=== PATIENT | male | born 1940 | race Caucasian/White ===

== ENCOUNTER 2019-03-26 12:25 | Day surgery (SDC) | payer OTHER ==
[~2019-03-26] VITALS: Ht 175.3 cm; Wt 84.2 kg
[~2019-03-26 12:25] MED LIST: ALEVE PM CAPLE1 EACH PO; ATEN100; Amlodipine Besyl5 MG PO; BENZ100A PO; Belladonna-Opi1 EACH RC; Buspirone HCl7.5 MG PO; CENTRUM SILVER1 EAC1 PO; CIPRO500 MG PO; DUTA.5 PO; Fish Oil 10001000 MG PO; LATA.005SO LEFTEYE; LOSA25 PO; Lisinopril2.5 MG; METF500C PO; METO50ER PO; PANT40 PO; Percocet 5-3251 EACH PO; SILD25T; TAMS.4ER PO; TRIAOIA; Toviaz4 MG PO
--- NOTE | 2019-03-26 13:04 | NUR ---
03/26/19 1304 Jovita Azevedo 1ST IV ATTEMPT IN RW UNSUCCESSFUL, ATTEMPTED BY ROSEANN BOBBY 2ND IV ATTEMPT IN RFA SUCCESSFUL, STARTED BY KIKA GILMAN.
== END 2019-03-26 15:25 | disposition home or self-care (01) ==
LOC: ORSCSDS 12:25
PROVIDERS: Internal Medicine Gastroenterology
PROC: 0DBK8ZX Excision of Ascending Colon, Via Natural or Artificial Opening Endoscopic, Diagnostic (ICD-10-PCS; principal; 2019-03-26 13:45)
PROC: 0DBM8ZX Excision of Descending Colon, Via Natural or Artificial Opening Endoscopic, Diagnostic (ICD-10-PCS; principal; 2019-03-26 13:45)
PROC: 0DBP8ZX Excision of Rectum, Via Natural or Artificial Opening Endoscopic, Diagnostic (ICD-10-PCS; principal; 2019-03-26 13:45)
DX: Z12.11 Encounter for screening for malignant neoplasm of colon (principal); K63.5 Polyp of colon; K62.1 Rectal polyp; K51.40 Inflammatory polyps of colon without complications; K57.30 Diverticulosis of large intestine without perforation or abscess without bleeding; Z86.010 Personal history of colon polyps; I10 Essential (primary) hypertension; E11.9 Type 2 diabetes mellitus without complications; Z79.84 Long term (current) use of oral hypoglycemic drugs; Z79.899 Other long term (current) drug therapy
CPT/HCPCS: 82947; 88305; J2704; J7120

== ENCOUNTER 2020-01-02 07:57 | Day surgery (SDC) | payer OTHER ==
[~2020-01-02] VITALS: Ht 172.7 cm; Wt 68.6 kg
== END 2020-01-02 09:50 | disposition home or self-care (01) ==
LOC: ORSCSDS 07:57
PROVIDERS: Internal Medicine Gastroenterology
PROC: 0DB58ZX Excision of Esophagus, Via Natural or Artificial Opening Endoscopic, Diagnostic (ICD-10-PCS; principal; 2020-01-02 09:00)
DX: R63.4 Abnormal weight loss (principal); C15.9 Malignant neoplasm of esophagus, unspecified; R11.0 Nausea; K44.9 Diaphragmatic hernia without obstruction or gangrene; F41.9 Anxiety disorder, unspecified; Z79.899 Other long term (current) drug therapy
CPT/HCPCS: 88305; 88360; J0461; J2405; J2704; J7120

== ENCOUNTER 2020-01-21 08:57 | Day surgery (SDC) | payer OTHER ==
[~2020-01-21] VITALS: Ht 175.3 cm; Wt 62.7 kg
[~2020-01-21 08:57] MED LIST changes: +CENTRUM SILVER1 EAC2 PO; +Hydroxyzine Pam25 MG PO; +LATANOPROST2.5 M1 LEFTEYE; +OMEPRAZOLE20 MG PO; +ONDA4 PO; +VITAMIN D PO
--- NOTE | 2020-01-21 12:10 | NUR ---
ASSUMED CARE OF PT. PT DENIES PAIN. TOLERATING JUICE. DRESSING D/I.
--- NOTE | 2020-01-21 12:29 | NUR ---
WRITTEN AND VERBAL D/C INSTRUCTIONS GIVEN TO PT AND WITH STATED UNDERSTANDING.
== END 2020-01-21 22:37 | disposition home or self-care (01) ==
LOC: ORSCMMR 08:57 → ORD 10:00 → ORSCMMR 22:37
PROVIDERS: Surgery
PROC: 05HM33Z Insertion of Infusion Device into Right Internal Jugular Vein, Percutaneous Approach (ICD-10-PCS; principal; 2020-01-21 10:00)
PROC: B5131ZA Fluoroscopy of Right Jugular Veins using Low Osmolar Contrast, Guidance (ICD-10-PCS; principal; 2020-01-21 10:00)
DX: C15.5 Malignant neoplasm of lower third of esophagus (principal); I10 Essential (primary) hypertension; E11.9 Type 2 diabetes mellitus without complications; E78.5 Hyperlipidemia, unspecified; K21.9 Gastro-esophageal reflux disease without esophagitis; Z79.899 Other long term (current) drug therapy
CPT/HCPCS: 77001; 82947; A9270-GY; C1788; J0690; J1100; J1642; J2405; J2704; J3010; J7120

== ENCOUNTER 2020-02-05 11:12 | Inpatient (IN) | payer OTHER ==
[~2020-02-05] VITALS: Ht 175.3 cm; Wt 42.9 kg
[~2020-02-05 11:12] MED LIST changes: -LATANOPROST2.5 M1 LEFTEYE; -OMEPRAZOLE20 MG PO; -ONDA4 PO
[2020-02-05] MEDS ORDERED: DEXA4 PO (12:41)
[2020-02-05] MEDS ORDERED: ONDA8 PO (12:43)
[2020-02-05] MEDS ORDERED: DUTA.5 PO (12:44)
[2020-02-05] MEDS ORDERED: Toviaz4 MG PO (12:44)
[2020-02-05] MEDS ORDERED: OMEPRAZOLE20 MG PO (12:47)
[2020-02-05] MEDS ORDERED: LATANOPROST2.5 M1 LEFTEYE (12:56)
[2020-02-05] MEDS ORDERED: TAMS.4ER PO (12:56)
[2020-02-05] MEDS ORDERED: ISOPTO CARPINE15 M2 LEFTEYE (12:59)
[2020-02-05] MEDS ORDERED: METO10 PO (13:01)
[2020-02-05 16:12] LABS: Source, Urine Clean Catch
[2020-02-05 16:18] LABS: Bilirubin, Urine Neg (Neg); Blood, Urine 1+ (Neg); Glucose Qualitative, Urine Neg (Neg); Ketones, Urine 1+ (Neg); Leukocyte Esterase, Urine Neg (Neg); Nitrite, Urine Neg (Neg); Protein, Urine 2+ (Neg); Specific Gravity, Urine 1.025 (1.003-1.022); Urobilinogen, Urine NORM (Normal)
[2020-02-05 16:26] LABS: Appearance, Urine Clear (Clear); Color, Urine Amber (P-Yellow)
[2020-02-05 16:27] LABS: White Blood Cells, Urine 0-2 /hpf (0-5)
[2020-02-05 16:28] LABS: Bacteria Mod /hpf
[2020-02-05 16:29] LABS: Squamous Epithelial Cells Rare /hpf (Few)
--- NOTE | 2020-02-05 19:24 | NUR ---
ADMIT NOTE RECEIVED REPORT FROM JACQUSE LEE; KIKA IN ED. PT TO ROOM AT 1615; 4 PERSON TRANSFER WITH SLIDER SHEET. PT ORIENTED TO ROOM AND CALL LIGHT; EDUCATED ON FALL RISK AND ASSISTANCE WITH AMBULATION IN ROOM. PT REPORTS FEELING "FINE NOW"; PREVIOUS PT HAD REPORTS COUGH, FEVER, NAUSEA AND ABD PAIN IN ED. PT A&Ox3; CALM AND COOPERATIVE WITH CARE. PT APPEARS FLAT AND WITHDRAWN; STATING HE IS JUST TIRED AND WANTS TO SLEEP. PT DENIES PAIN, CHEST PAIN/PRESSURE, SOB AND NAUSEA SINCE ADMISSION. PT HR PER TELE SINUS TACH 120'S UPON ADMISSION TRENDING DOWN. SPO2 >92% ON RA; BREATHING EVEN AND UNLABORED, TACHYPNIC. PT USING URINAL IN BED. ABLE TO CHANGE POSITION IN BED IND; ENCOURAGED PT TO REPOSITION. VSS. NO OTHER ACUTE CHANGES NOTED. REPORT GIVEN TO ONCOMING RN.
--- NOTE | 2020-02-05 22:00 | NUR ---
POSITIVE BLOOD CULTURES LAB CALLED WITH POSITIVE OUTPATIENT BLOOD CULTURES DRAWN PRIOR TO ADMISSION. CULTURES WERE POSITIVE FOR GRAM POSITIVE COCCI IN CHAINS. PROVIDER CALLED. [facility] CONSULT PLACED.
[2020-02-06 03:41] LABS: Hematocrit 27.8 % (37.0-53.0); Hemoglobin 9.2 g/dL (13.5-17.5); Mean Corpuscular HGB 32.9 pg (26.0-34.0); Mean Corpuscular HGB Conc 33.1 g/dL (31.5-36.5); Mean Corpuscular Volume 99 fL (80-100); Platelet Count 110 K/mm3 (150-400); RDW Coefficient Variation 14.3 % (11.7-14.2); RDW Standard Deviation 52.1 fL (35.1-46.3); White Blood Cell Count 1.34 K/mm3 (4.00-11.30)
[2020-02-06 04:01] LABS: Alanine Aminotransfer (ALT/SGP 32 U/L (12-78); Albumin, Blood 1.9 g/dL (3.4-5.0); Albumin/Globulin Ratio 0.7 (0.8-1.8); Alk Phos 162 U/L (50-136); Anion Gap 8 mmol/L (6-16); Aspartate Aminotrans (AST/SGOT 33 U/L (12-37); Bilirubin, Total 0.5 mg/dL (0.1-1.0); Blood Urea Nitrogen 23 mg/dL (8-24); Bun/Creatinine Ratio 29.2 (12.0-20.0); CO2, Blood 22 mmol/L (21-32); Calcium, Blood 7.1 mg/dL (8.5-10.1); Chloride, Blood 110 mmol/L (98-108); Creatinine, Blood 0.79 mg/dL (0.60-1.20); Globulin, Blood 2.6 g/dL (2.2-4.0); Glomerular Filtration Rate >60 (60-); Glucose, Blood 83 mg/dL (70-99); Potassium, Blood 4.2 mmol/L (3.5-5.5); Sodium, Blood 140 mmol/L (136-145); Total Protein, Blood 4.5 g/dL (6.4-8.2); Vancomycin, Random 9.6 ug/mL
[2020-02-06 05:54] LABS: BAND PERCENT MAN 29 % (0-8); BASOPHILS PERCENT MAN 0 % (0-2); EOSINOPHILS PERCENT MAN 0 % (0-6); LYMPHOCYTES PERCENT MAN 23 % (21-46); METAMYELOCYTE ABSOLUTE MAN 0.14 K/mm3 (0.00-0.00); METAMYELOCYTE PERCENT MAN 11 % (0-0); MONOCYTES ABSOLUTE MAN 0.25 K/mm3 (0.16-1.47); MONOCYTES PERCENT MAN 19 % (4-13); MYELOCYTE ABSOLUTE MAN 0.02 K/mm3 (0.00-0.00); MYELOCYTE PERCENT MAN 2 % (0-0); NEUTROPHILS ABSOLUTE MAN 0.61 K/mm3 (1.96-9.15); SEG NEUTROPHILS PERCENT MAN 17 % (41-73); TOTAL CELLS COUNTED 150
--- NOTE | 2020-02-06 06:22 | NUR ---
SHIFT SUMMARY PT SLEEPING IN ROOM COMFORTABLY AT THIS TIME. NO ACUTE CHANGES IN STATUS T/O NIGHT. PT SLEPT WELL T/O NIGHT. DENIED ANY CP OR SOB. PT HAD LOWER BP T/O NIGHT. FLUIDS INFUSING IN PIV PER EMAR. LACTIC ACID CONTINUED TO TREND DOWNWARD DURING NIGHT. PT REMAINED AFEBRILE. DENIED OTHER NEEDS. RESP EVEN UNLABORED ON RA W/ SATS >92%. PT VERY FLAT AFFECT. USES URINAL IN BED WITH ASSIST. DENIED OTHER NEEDS. CALL LIGHT IN REACH.
--- NOTE | 2020-02-06 19:18 | NUR ---
SHIFT SUMMARY PT A&Ox3; CALM AND COOPERATIVE WITH CARE. PT RESTING IN BED DURING SHIFT. 1 PERSON ASSIST TO BSC. PT DENIES, PAIN, CHEST PAIN/PRESSURE, SOB, NAUSEA AND DIZZINESS. PT RECIVING IV ANTIBITOICIS AND IV FLUIDS. SPO2 >92% ON RA. VSS. NO OTHER ACUTE CHANGES NOTED DURING SHIFT. REPORT GIVEN TO ONCOMING RN.
[2020-02-07 04:07] LABS: Alanine Aminotransfer (ALT/SGP 41 U/L (12-78); Albumin, Blood 1.8 g/dL (3.4-5.0); Albumin/Globulin Ratio 0.7 (0.8-1.8); Alk Phos 154 U/L (50-136); Anion Gap 11 mmol/L (6-16); Aspartate Aminotrans (AST/SGOT 48 U/L (12-37); Bilirubin, Total 0.4 mg/dL (0.1-1.0); Blood Urea Nitrogen 27 mg/dL (8-24); Bun/Creatinine Ratio 40.4 (12.0-20.0); CO2, Blood 19 mmol/L (21-32); Calcium, Blood 7.1 mg/dL (8.5-10.1); Chloride, Blood 110 mmol/L (98-108); Creatinine, Blood 0.67 mg/dL (0.60-1.20); Globulin, Blood 2.5 g/dL (2.2-4.0); Glomerular Filtration Rate >60 (60-); Glucose, Blood 129 mg/dL (70-99); Potassium, Blood 3.6 mmol/L (3.5-5.5); Sodium, Blood 140 mmol/L (136-145); Total Protein, Blood 4.3 g/dL (6.4-8.2); Vancomycin, Random 6.9 ug/mL
--- NOTE | 2020-02-07 06:22 | NUR ---
SHIFT SUMMARY PT SLEEPING IN ROOM COMFORTABLY AT THIS TIME. NO ACUTE CHANGES IN STATUS T/O NIGHT. PT SLEPT WELL. DENIED ANY CP OR SOB. RESP EVEN UNLABORED ON RA W/ SATS >92%. BICARB WAS INFUSING IN PIV MOST OF THE NIGHT. CLIMIMIX STARTED NEXT IN PIV SEE EMAR. DENIED OTHER NEEDS. PT USING CALL LIGHT APPROPRIATELY FOR BSC USE AND URINAL. DENIED OTHER NEEDS. PT REFUSING BEDSIDE REPORT THIS AM. REPORTS WANTS TO SLEEP.
[2020-02-07 08:59] LABS: Hematocrit 28.5 % (37.0-53.0); Hemoglobin 9.2 g/dL (13.5-17.5); Mean Corpuscular HGB 32.7 pg (26.0-34.0); Mean Corpuscular HGB Conc 32.3 g/dL (31.5-36.5); Mean Corpuscular Volume 101 fL (80-100); Mean Platelet Volume 11.2 fL (9.1-12.4); NRBC ABSOLUTE 0.03 K/mm3 (0.00-0.02); NRBC Auto 0.4 /100 WBC (0.0-0.2); Platelet Count 199 K/mm3 (150-400); RDW Coefficient Variation 14.5 % (11.7-14.2); RDW Standard Deviation 54.3 fL (35.1-46.3); Red Blood Cell Count 2.81 M/mm3 (4.30-5.90); White Blood Cell Count 7.68 K/mm3 (4.00-11.30)
[2020-02-07 09:23] LABS: BAND PERCENT MAN 31 % (0-8); BASOPHILS PERCENT MAN 0 % (0-2); EOSINOPHILS PERCENT MAN 0 % (0-6); LYMPHOCYTES ABSOLUTE MAN 0.46 K/mm3 (0.84-5.20); LYMPHOCYTES PERCENT MAN 6 % (21-46); MONOCYTES ABSOLUTE MAN 0.69 K/mm3 (0.16-1.47); MONOCYTES PERCENT MAN 9 % (4-13); NEUTROPHILS ABSOLUTE MAN 6.52 K/mm3 (1.96-9.15); SEG NEUTROPHILS PERCENT MAN 54 % (41-73); TOTAL CELLS COUNTED 100
[2020-02-07 09:37] LABS: Magnesium, Blood 1.7 mg/dL (1.6-2.4); Phosphorus, Blood 1.4 mg/dL (2.5-4.9)
--- NOTE | 2020-02-07 16:28 | NUR ---
SHIFT NOTE PT HAS BEEN RESTING WELL IN BED T/O THE DAY. PT APPEARS LESS WITHDRAWN T/O THE SHIFT. VSS. PT WITH CLINIMIX AND POTASSIUM PHOSPHATE RUNNING PER ORDERS AT THIS TIME. PT HAS HAD A VERY POOR APPETITE T/O THE DAY, PICKS AT HIS TRAY DOES NOT EAT A GREAT DEAL, DIETARY IS AWARE OF THIS. PT HAS DENIED MANY NEEDS T/O THE DAY. PT HAS BEEN MADE MEDICAL STATUS W/O TELE.
[2020-02-08 05:29] LABS: Hematocrit 33.6 % (37.0-53.0); Hemoglobin 11.3 g/dL (13.5-17.5); Mean Corpuscular HGB Conc 33.6 g/dL (31.5-36.5); Mean Corpuscular Volume 98 fL (80-100); Mean Platelet Volume 10.2 fL (9.1-12.4); NRBC ABSOLUTE 0.07 K/mm3 (0.00-0.02); NRBC Auto 0.2 /100 WBC (0.0-0.2); Platelet Count 303 K/mm3 (150-400); RDW Coefficient Variation 14.7 % (11.7-14.2); RDW Standard Deviation 53.1 fL (35.1-46.3); Red Blood Cell Count 3.42 M/mm3 (4.30-5.90)
[2020-02-08 05:51] LABS: Alanine Aminotransfer (ALT/SGP 63 U/L (12-78); Albumin, Blood 2.1 g/dL (3.4-5.0); Albumin/Globulin Ratio 0.7 (0.8-1.8); Alk Phos 266 U/L (50-136); Anion Gap 11 mmol/L (6-16); Aspartate Aminotrans (AST/SGOT 54 U/L (12-37); Bilirubin, Total 0.6 mg/dL (0.1-1.0); Blood Urea Nitrogen 23 mg/dL (8-24); Bun/Creatinine Ratio 41.7 (12.0-20.0); CO2, Blood 19 mmol/L (21-32); Calcium, Blood 8.6 mg/dL (8.5-10.1); Chloride, Blood 108 mmol/L (98-108); Creatinine, Blood 0.55 mg/dL (0.60-1.20); Glomerular Filtration Rate >60 (60-); Glucose, Blood 135 mg/dL (70-99); Phosphorus, Blood 2.4 mg/dL (2.5-4.9); Potassium, Blood 4.1 mmol/L (3.5-5.5); Sodium, Blood 138 mmol/L (136-145); Total Protein, Blood 5.1 g/dL (6.4-8.2)
[2020-02-08 06:15] LABS: BAND PERCENT MAN 16 % (0-8); BASOPHILS PERCENT MAN 0 % (0-2); EOSINOPHILS PERCENT MAN 0 % (0-6); LYMPHOCYTES PERCENT MAN 6 % (21-46); MONOCYTES ABSOLUTE MAN 1.13 K/mm3 (0.16-1.47); MONOCYTES PERCENT MAN 4 % (4-13); MYELOCYTE ABSOLUTE MAN 0.85 K/mm3 (0.00-0.00); MYELOCYTE PERCENT MAN 3 % (0-0); NEUTROPHILS ABSOLUTE MAN 24.42 K/mm3 (1.96-9.15); PROMYELOCYTE ABSOLUTE MAN 0.28 K/mm3 (0.00-0.00); PROMYELOCYTE PERCENT MAN 1 % (0-0); SEG NEUTROPHILS PERCENT MAN 70 % (41-73); TOTAL CELLS COUNTED 100
--- NOTE | 2020-02-08 06:30 | NUR ---
SHIFT SUMMARY PT SLEEPING IN ROOM COMFORTABLY AT THIS TIME. NO ACUTE CHANGES IN STATUS T/O NIGHT PT SLEPT WELL. RESP EVEN UNLABORED ON RA W/ SATS >92> DENIED CP OR SOB. PT USED URINAL IN BED W/O ASSIST DURING NIGHT. SLEEP STUDY DONE. VISITS TO ROOM REDUCED TO ALLOW PT TO SLEEP. CALL LIGHT IN REACH. COVID TEST REMAINS PENDING.
--- NOTE | 2020-02-08 11:00 | NUR ---
DR FIOR CHILDRESS HERE TO SEE PT. NO NEW CHANGES AT THIS TIME. PLAN FOR DISCHARGE HOME TODAY. WILL CONTINUE TO MONITOR.
[2020-02-08] MEDS ORDERED: MELATONIN5 M1 PO (12:47)
[2020-02-08] MEDS ORDERED: LEVO750 PO (12:48)
--- NOTE | 2020-02-08 14:04 | NUR ---
DISCHARGE PT DISCHARGED TO HOME VIA WHEEL CHAIR WITH PT SPOUSE TO DRIVE PT HOME. ALL PT BELONGINGS TAKEN WITH PT.
--- NOTE | 2020-02-08 14:57 | NUR ---
LATE ENTRY: CONTACTED BY PRIMARY RN AND CHARGE DUKE ANAND. PT HAS NO PREFERENCE FOR HOME HEALTH. PT HAS ORDERS FOR HOME HEALTH FACE TO FACE AND PATIENT WOULD LIKE AN EVAL SET UP PRIOR TO GOING HOME. ATTEMPT TO CONTACT [facility] SYED UNSUCCESSFUL. CALL TO CARLOS JOSE. SHE WILL GET HOLD OF FAMILY AND SET UP A HOME HEALTH EVAL. FABIOLA LAWRENCE RN CARE MANAGER.
== END 2020-02-08 14:12 | disposition home or self-care (01) | DRG 872 ==
LOC: ER 11:12 → PCU 13:32
PROVIDERS: Emergency Medicine; Pharmacist; ADMIT Family Medicine
DX: A40.8 Other streptococcal sepsis (principal); C15.9 Malignant neoplasm of esophagus, unspecified; E44.0 Moderate protein-calorie malnutrition; E87.2 Acidosis; C78.7 Secondary malignant neoplasm of liver and intrahepatic bile duct; C78.1 Secondary malignant neoplasm of mediastinum; R65.20 Severe sepsis without septic shock; D70.9 Neutropenia, unspecified; E86.0 Dehydration; Z20.828 Contact with and (suspected) exposure to other viral communicable diseases; Z66 Do not resuscitate; L89.92 Pressure ulcer of unspecified site, stage 2; D70.1 Agranulocytosis secondary to cancer chemotherapy; R50.81 Fever presenting with conditions classified elsewhere
CPT/HCPCS: 36415; 51798; 71045; 80053; 80202; 81001; 83605; 83735; 84100; 85007; 85025; 85027; 87040; 87086; 87147; 87184; 93005; 93010; 93306; 94762; 96361; 96365; 96366; 96367; 96375; 99285-25; J0692; J0696; J1170; J1447; J1650; J1956; J2405; J3370; J3411; J7030; J7040; J7050; J7060; U0003

== ENCOUNTER 2020-04-10 15:52 | Emergency (ER) | payer OTHER ==
[~2020-04-10] VITALS: Ht 175.3 cm; Wt 49.9 kg
[~2020-04-10 15:52] MED LIST changes: +DEXA4 PO; +ISOPTO CARPINE15 M2 LEFTEYE; +LATANOPROST2.5 M1 LEFTEYE; +LEVO750 PO; +MELATONIN5 M1 PO; +METO10 PO; +OMEPRAZOLE20 MG PO; +ONDA8 PO
[2020-04-10 16:43] LABS: Hematocrit 29.5 % (37.0-53.0); Hemoglobin 9.5 g/dL (13.5-17.5); Mean Corpuscular HGB 34.7 pg (26.0-34.0); Mean Corpuscular HGB Conc 32.2 g/dL (31.5-36.5); Mean Corpuscular Volume 108 fL (80-100); Mean Platelet Volume 10.5 fL (9.1-12.4); NRBC ABSOLUTE 0.03 K/mm3 (0.00-0.02); NRBC Auto 0.6 /100 WBC (0.0-0.2); Platelet Count 154 K/mm3 (150-400); RDW Standard Deviation 72.9 fL (35.1-46.3); Red Blood Cell Count 2.74 M/mm3 (4.30-5.90); White Blood Cell Count 5.18 K/mm3 (4.00-11.30)
[2020-04-10 17:04] LABS: Alanine Aminotransfer (ALT/SGP 34 U/L (12-78); Albumin, Blood 3.5 g/dL (3.4-5.0); Albumin/Globulin Ratio 1.3 (0.8-1.8); Alk Phos 201 U/L (50-136); Anion Gap 7 mmol/L (6-16); Aspartate Aminotrans (AST/SGOT 25 U/L (12-37); BAND PERCENT MAN 3 % (0-8); BASOPHILS PERCENT MAN 0 % (0-2); Blood Urea Nitrogen 37 mg/dL (8-24); Bun/Creatinine Ratio 57.4 (12.0-20.0); CO2, Blood 26 mmol/L (21-32); Calcium, Blood 8.9 mg/dL (8.5-10.1); Chloride, Blood 113 mmol/L (98-108); Creatinine, Blood 0.65 mg/dL (0.60-1.20); EOSINOPHILS PERCENT MAN 0 % (0-6); Globulin, Blood 2.6 g/dL (2.2-4.0); Glomerular Filtration Rate >60 (60-); Glucose, Blood 158 mg/dL (70-99); LYMPHOCYTES ABSOLUTE MAN 0.41 K/mm3 (0.84-5.20); LYMPHOCYTES PERCENT MAN 8 % (21-46); MONOCYTES PERCENT MAN 2 % (4-13); NEUTROPHILS ABSOLUTE MAN 4.66 K/mm3 (1.96-9.15); Potassium, Blood 3.5 mmol/L (3.5-5.5); SEG NEUTROPHILS PERCENT MAN 87 % (41-73); Sodium, Blood 146 mmol/L (136-145); TOTAL CELLS COUNTED 100; Total Protein, Blood 6.1 g/dL (6.4-8.2)
[2020-04-10] MEDS ORDERED: Melatonin5 M1 PO (18:38)
[2020-04-10] MEDS ORDERED: Hydrocortiso453.6 G1 (18:38)
[2020-04-10 19:23] LABS: Magnesium, Blood 2.2 mg/dL (1.6-2.4)
[2020-04-10 19:25] LABS: Thyroid Stimulating Hormone 0.899 uIU/mL (0.360-4.800)
[2020-04-10] MEDS ORDERED: nitroglycerine PR (21:55)
[2020-04-10 23:57] LABS: Source, Urine Clean Catch
[2020-04-11 00:02] LABS: Blood, Urine 1+ (Neg); Glucose Qualitative, Urine Neg (Neg); Ketones, Urine 2+ (Neg); Leukocyte Esterase, Urine 1+ (Neg); Nitrite, Urine Neg (Neg); Protein, Urine 2+ (Neg); Urobilinogen, Urine 2+ (Normal)
[2020-04-11 00:07] LABS: Appearance, Urine Clear (Clear); Bilirubin, Urine 1+ (Neg); Color, Urine Amber (P-Yellow)
[2020-04-11 00:25] LABS: Amorphous Light (0-Heavy); Bacteria Rare /hpf; Red Blood Cells, Urine 0-2 /hpf (0-2); Squamous Epithelial Cells Not Seen /hpf (Few); White Blood Cells, Urine 0-2 /hpf (0-5)
== END 2020-04-11 01:07 | disposition home or self-care (01) ==
LOC: ER 15:52
PROVIDERS: Emergency Medicine; Physician Assistant
DX: E86.0 Dehydration (principal); K59.4 Anal spasm; C15.9 Malignant neoplasm of esophagus, unspecified; I10 Essential (primary) hypertension; Z92.21 Personal history of antineoplastic chemotherapy; Z79.899 Other long term (current) drug therapy
CPT/HCPCS: 36415; 51701; 80053; 81001; 83735; 84443; 85025; 87086; 93005; 93010; 96360-59; 96361-59; 99284-25; J2270; J2405; J7030

== ENCOUNTER 2020-05-08 09:15 | Emergency (ER) | payer OTHER | END 2020-05-08 14:50 | disposition short-term general hospital (02) | LOC: ER 09:15 | DX: K44.0 Diaphragmatic hernia with obstruction, without gangrene (principal); I10 Essential (primary) hypertension; E11.9 Type 2 diabetes mellitus without complications; E78.5 Hyperlipidemia, unspecified; Z85.01 Personal history of malignant neoplasm of esophagus; Z79.899 Other long term (current) drug therapy; Z20.828 Contact with and (suspected) exposure to other viral communicable diseases ==

== ENCOUNTER → 2020-08-13 | Outpatient (CLI) | payer OTHER ==
[~2020-08-13] MED LIST changes: +Hydrocortiso453.6 G1; +Melatonin5 M1 PO; +SUCR1 PO; +nitroglycerine PR
[2020-08-13 17:45] LABS: Bilirubin, Urine Neg (Neg); Blood, Urine 5+ (Neg); Glucose Qualitative, Urine Neg (Neg); Ketones, Urine 1+ (Neg); Leukocyte Esterase, Urine 1+ (Neg); Nitrite, Urine Neg (Neg); Protein, Urine 1+ (Neg); Specific Gravity, Urine 1.025 (1.003-1.022); Urobilinogen, Urine 1+ (Normal)
[2020-08-13 17:58] LABS: Appearance, Urine Clear (Clear); Color, Urine Yellow (P-Yellow)
[2020-08-13 17:59] LABS: Calcium Oxalate Crystals Few /hpf; Granular Casts 0-2 /lpf (0); Red Blood Cells, Urine 50-100 /hpf (0-2)
[2020-08-13 18:00] LABS: Bacteria Few /hpf; Squamous Epithelial Cells Rare /hpf (Few)
== END ==
LOC: LAB SHORT 17:00
PROVIDERS: Family Medicine
DX: I10 Essential (primary) hypertension (principal); R53.81 Other malaise; Z85.46 Personal history of malignant neoplasm of prostate
CPT/HCPCS: 81001; 87077; 87086; 87186

== ENCOUNTER 2020-08-15 17:00 | Inpatient (IN) | payer OTHER ==
[~2020-08-15] VITALS: Ht 175.3 cm; Wt 47.9 kg
[2020-08-15 17:35] LABS: Hemoglobin 6.7 g/dL (13.5-17.5); Mean Corpuscular HGB 31.5 pg (26.0-34.0); Mean Corpuscular HGB Conc 29.1 g/dL (31.5-36.5); Mean Corpuscular Volume 108 fL (80-100); Mean Platelet Volume 10.3 fL (9.1-12.4); NRBC ABSOLUTE 0.07 K/mm3 (0.00-0.02); NRBC Auto 0.7 /100 WBC (0.0-0.2); Platelet Count 387 K/mm3 (150-400); RDW Coefficient Variation 19.5 % (11.7-14.2); RDW Standard Deviation 76.3 fL (35.1-46.3); Red Blood Cell Count 2.13 M/mm3 (4.30-5.90); White Blood Cell Count 10.58 K/mm3 (4.00-11.30)
[2020-08-15 18:01] LABS: Alanine Aminotransfer (ALT/SGP 115 U/L (12-78); Albumin, Blood 2.2 g/dL (3.4-5.0); Albumin/Globulin Ratio 0.9 (0.8-1.8); Alk Phos 652 U/L (50-136); Anion Gap 16 mmol/L (6-16); Aspartate Aminotrans (AST/SGOT 286 U/L (12-37); Bilirubin, Total 0.6 mg/dL (0.1-1.0); Blood Urea Nitrogen 51 mg/dL (8-24); Bun/Creatinine Ratio 91.9 (12.0-20.0); CO2, Blood 21 mmol/L (21-32); Calcium, Blood 11.5 mg/dL (8.5-10.1); Chloride, Blood 100 mmol/L (98-108); Creatinine, Blood 0.56 mg/dL (0.60-1.20); Globulin, Blood 2.5 g/dL (2.2-4.0); Glomerular Filtration Rate >60 (60-); Glucose, Blood 103 mg/dL (70-99); Potassium, Blood 4.7 mmol/L (3.5-5.5); Sodium, Blood 137 mmol/L (136-145); Total Protein, Blood 4.7 g/dL (6.4-8.2)
[2020-08-15 18:03] LABS: BAND PERCENT MAN 7 % (0-8); BASOPHILS PERCENT MAN 0 % (0-2); EOSINOPHILS PERCENT MAN 0 % (0-6); LYMPHOCYTES ABSOLUTE MAN 0.42 K/mm3 (0.84-5.20); LYMPHOCYTES PERCENT MAN 4 % (21-46); MONOCYTES ABSOLUTE MAN 0.84 K/mm3 (0.16-1.47); MONOCYTES PERCENT MAN 8 % (4-13); NEUTROPHILS ABSOLUTE MAN 9.31 K/mm3 (1.96-9.15); SEG NEUTROPHILS PERCENT MAN 81 % (41-73); TOTAL CELLS COUNTED 100
[2020-08-15 18:50] LABS: Source, Urine Catheter
[2020-08-15 18:56] LABS: Appearance, Urine Clear (Clear); Bilirubin, Urine Neg (Neg); Blood, Urine Neg (Neg); Color, Urine Yellow (P-Yellow); Glucose Qualitative, Urine Neg (Neg); Ketones, Urine Neg (Neg); Leukocyte Esterase, Urine Neg (Neg); Nitrite, Urine Neg (Neg); Protein, Urine Neg (Neg); Specific Gravity, Urine 1.025 (1.003-1.022); Urobilinogen, Urine 1+ (Normal)
--- NOTE | 2020-08-16 00:48 | NUR ---
0005 PT ADMITTED TO ROOM 343 PER CART FROM ER; REPORT RECEIVED FROM FANTASMA RN,ER NURSE; PT INCONTINENT BLACK STOOL UPON ARRIVAL TO UNIT; PTS WILLIAMS AT SIDE AND SIGNED ALL PERMITS FOR HIPPA AND BLOOD CONSENT AND PHOTO CONSENT; PT ALERT AND ORIENTED X 2; ABLE TO FOLLOW SIMPLE VERBAL COMMANDS; ANDERSON DRAINING CLEAR YELLOW FLUID.
--- NOTE | 2020-08-16 03:34 | NUR ---
SHIFT SUMMARY: 80 Y/O SLENDER MALE RESTED COMFORTABLY ALL SHIFT; PT IS DNR WITH BRACELET PLACED ON RIGHT WRIST; PT ALERT PERSON ONLY AND ONLY MUMBLES WORDS THAT ARE DIFFICULT TO UNDERSTAND; PT IS NPO AND HAS A PEG TUBE TO ABD; PTS HG 6.7 WITH ONE UNIT PRBC RECEIVED WITHOUT ISSUE; PT HAS PRESSURE ULCER STAGE 2 ON COCCYX WITH MEPLEX APPLIED AND SKIN TEAR LEFT UPPER DELTOID LATERAL ASPECT WITH NON ADHESIVE DRESSING APPLIED WITH KERLIX; ANDERSON DRAINING CLEAR YELLOW FLUID; DENIES PAIN; LUNG SOUNDS ARE DIMINISHED THROUGHOUT; PT DID HAVE BLACK LOOSE STOOL UPON ADMISSION TO ROOM; PT CURRENTLY HAS [facility] PAST FEW MONTHS; BED ALARM APPLIED FOR SAFETY, BED LOW POSITION WITH CALL LIGHT AT SIDE.
[2020-08-16 07:50] LABS: Hematocrit 21.7 % (37.0-53.0); Hemoglobin 6.8 g/dL (13.5-17.5)
--- NOTE | 2020-08-16 12:00 | NUR ---
Phone call to Adrienne as requested by nursing. Adrienne had questions re: hospice. Answered her questions. Adrienne is intereseted in having a hospital bed and bedside table at this time in her home. She reports Chilango has declined rapidly over the past few weeks and spends most of his time in bed and is incontinent. Adrienne reports her children will be here this weekend and will assist with moving furniture in the home to get ready for Shawn to come home with hospice services early next week. Adrienne states that they currently have [facility] and would like to transition to [facility]. Spoke with Jennifer Garica and updated her on 's choice of hospice agency and the equipment that she was requesting. Nursing updated. Visited with Chilango. He is a/o x 1 and is requesting water. Able to drink water with a straw with HOB elevated without any coughing or choking noted. Shawn requested that the TV be turned on. He stated that he likes sports. Found a channel on TV with a football game for him. Call light in reach although I am not sure that he will remember how to use the call light. Bed in low position. Will continue to monitor.
--- NOTE | 2020-08-16 18:34 | NUR ---
SHIFT SUMMARY MARTIN WAS CHANGED TO COMFORT CARE THIS SHIFT PER HIS AND DR VAZQUEZ. PALLIATIVE CARE CALLED TO OFFER RESOURCES. PT HAD SEVERAL VISITORS. HE LOOKS COMFORTABLE EXCEPT WITH TURNS. COCCYX VERY EXCORIATED. SKIN CLEANED AND CALAZIME APPLIED MULTIPLE TIMES. PT HAD SEVERAL LOOSE BLACK STOOL, INCONTINENT. ANDERSON PATENT AND DRAINING. ROXANOL GIVEN TWICE FOR NONVERBAL S/S PAIN. WHEN ASKED, HE DENIES PAIN. A/OX1. FREQUENT CHECKS, CALL LIGHT IN REACH, WCTM
--- NOTE | 2020-08-17 06:03 | NUR ---
SHIFT SUMMARY PATIENT SLEPT MOST OF THE NIGHT, OCCASIONALLY WAKING UP AND TALKING WHEN CARE STAFF CAME IN TO COMPLETE ADL'S WITH HIM. HE HAD NO COMPLAINTS OF PAIN AND DID NOT REQUIRE ANY PRN MEDICATION TO BE GIVEN. IV PATENT AND FLUSHED. BED IN LOWEST POSITION WITH WHEELS LOCKED AND ALARM ON. CALL LIGHT WITHIN REACH. REPORT GIVEN TO ONCOMING RN.
--- NOTE | 2020-08-17 13:31 | NUR ---
CARE COORDINATION REFERRAL - ADMIT: 08/15/20 DISCHARGE: DX:WEAKNESS, CONFUSION. CC: [id number] ADMIT: 02/05/20 DISCHARGE: 02/08/20 DX: NEUTROPENIC FEVER/SEPSIS BRIA CALL: WILLIAMS AT 1ST- [phone], 2ND- [phone] RESIDENCE: HOME CAREGIVER: WILLIAMS CHONG, SPOUSE / PARTNER, RADHAMES CHONG, CHILD, DX: ADENOCARCINOMA, ANXIETY, HTN, SEE LIST DME: WALKER WITHOUT WHEELS CCM: NONE HOME HEALTH: [id number] SUMMARY: ADMIT: 08/15/20 08/17/20- PER CHART REVIEW WITH DR. VAZQUEZ, PT IS TENTATIVELY SCHEDULED TO D/C HOME TOMORROW ON COMFORT CARE. CALL AND SPOKE WITH NURSE FOR [facility], DISCUSSED THE 'S NEEDS FOR DME IN THE HOME. SHE STATED THAT THEY WILL GET THESE ITEMS ORDERED AND AT THE HOME FOR THE . NURSE STATED THAT SHE WILL CALL IN THE [facility] TO FURTHER DISCUSS THE PATIENT'S NEEDS. WENT AND SPOKE WITH , WILLIAMS. REVIEWED OUR HOSPICE BRIA LETTER AND LET HER KNOW THAT WE WOULD BE CALLING A COUPLE BUSINESS DAYS AFTER HER DISCHARGED. UPDATED HER ON PREVIOUS CONVERSATION WITH HEATHER AND THE DOCTOR'S PLAN TO DISCHARGE TOMORROW. SAT AND DISCUSSED HER PLANS FOR WHEN HE RETURNS HOME AND THAT HER CHILDREN AT THE HOME GETTING THINGS READY FOR THEM. SHE COULD NOT IDENTIFY ANY OTHER NEEDS AT THIS TIME. WILLIAMS ACKNOWLEDGED UNDERSTANDING OF THE PLAN MOVING FORWARD. -KJW 1. AN 80-YEAR-OLD MALE BROUGHT IN WITH ACUTE ENCEPHALOPATHY, WEAKNESS IN THE SETTING OF STAGE IV ADVANCED GASTROESOPHAGEAL ADENOCARCINOMA. 2. SEVERE CACHEXIA AND OVERALL SEVERE DECONDITIONING. 3. HYPOTENSION, LIKELY DUE TO SEVERE VOLUME DEPLETION FROM VERY POOR INTAKE. 4. HYPERCALCEMIA. 5. ANEMIA, LIKELY OF CHRONIC KIDNEY DISEASE AND IN THE SETTING OF CANCER. 6. TERMINAL HEALTH CONDITION. 7. EMACIATION. 8. ATRIAL FIBRILLATION, ON THE EKG. 9. HYPOALBUMINEMIA. 10. HISTORY OF TYPE 2 DIABETES, HYPERLIPIDEMIA, AND BLADDER OUTLET OBSTRUCTIVE SYMPTOMS. PLAN: 1. OVERALL STATUS, AND GOALS OF CARE WERE DISCUSSED WITH THE PATIENT'S SPOUSE THE PATIENT IS CONFUSED. WE HAVE AGREED TO MAKE THE PATIENT DNR, DNI AT THIS POINT. 2. THE PATIENT'S SPOUSE IS INTERESTED IN MEETING WITH THE HOSPICE TEAM WHENEVER THEY ARE AVAILABLE. 1 UNIT PACKED CELL BLOOD TRANSFUSION. 3. GENTLE HYDRATION. 4. PALLIATIVE CARE MEASURES. 5. EXPECT POTENTIALLY GREATER THAN 2 DAYS INPATIENT GIVEN THE PATIENT'S LIKELY EVENTUAL TERMINAL CONDITION. 6. DNR/DNI STATUS. 7. I HAVE OPTED TO SKIP DVT PROPHYLAXIS IN THIS PATIENT GIVEN HIS TERMINAL CONDITION AND FURTHER GOALS OF CARE DESCRIBED. -------- ADMIT: 02/06/20 02/08/20 DISCHARGE HOME, PATIENT RECD MEDIPORT AND CHEMO IN HOSPTIAL, ORAL ANTIBIOTICS PRESCRIBED. FOLLOW UP WITH [facility] 02/14 DAYS, DR BARKER 1-[address] CHILDRESS. HOME HEALTH ORDERED FROM [facility]. PER DR RAMON COCHRAN D/C TUESDAY, WHITE COUNT IMPROVED, W/F FINAL CULTURE TO PRESCRIBE ANITIOTICS. DISCHARGE HOME WITH .
--- NOTE | 2020-08-17 15:48 | NUR ---
SLEEPING MOST OF SHIFT. MEDICATED FOR PAIN WITH GOOD RESULTS. ANDERSON DRAINING TO GRAVITY. WCTM
--- NOTE | 2020-08-17 22:37 | NUR ---
08/17/202099 SLEEPING WITHOUT DISTRESS. RESP. EQUAL.
--- NOTE | 2020-08-18 00:09 | NUR ---
08/18/20 0000 PT REPOSITIONED TO RT SIDE WITH PILLOWS. ORAL CARE GIVEN WITH SWABS AND LIP OINTMENT. HAD SMEAR OF DARK BROWN/BLACK BM. GOOD PERICARE GIVEN.
--- NOTE | 2020-08-18 04:39 | NUR ---
08/18/20 0430 REPOSITONED AND ORAL AND EDIN-CARE GIVEN. THEN PT WAS MEDICATED FOR GENERAL DISCOMFORT. FELL BACK TO SLEEP AFTERWARDS.
--- NOTE | 2020-08-18 06:07 | NUR ---
08/18/20 0600 SLEEPING WELL WITHOUT DISCOMFORT OR DISTRESS.
--- NOTE | 2020-08-18 10:13 | NUR ---
pt appears to be sleeping this am, appears to be comfortable
--- NOTE | 2020-08-18 10:14 | NUR ---
PT AWAKE REPORSITIONED BY PUBLIC RECORDS RESEARCHER, PT REPORTS HAVING A BAD NIGHT, DENIES PAIN AT THIS TIME, AT THE BEDSIDE, THE PT APPEARS TO BE COMFORTABLE
--- NOTE | 2020-08-18 10:39 | NUR ---
COMFORT CARE VISIT AND CASE CONFERENCE - I was contacted by RN per 's request. She is visiting in room and inquiring re: set up of hospice and DME for d/c home. When I arrived to the room had stepped out or gone home. Voice message left for her that I had contacted Flori of [facility] and [facility] or Flori would be in touch re: set up of DME and hospice directly. Pt lying on right side in darkened room. He did not wake to voice or touch. I did not note any nonverbal indicators of pain, anxiety, agitation or restlessness while observing at bedside. Spoke to RN with update on Hospice plan of care and that they would be in touch with the . I let Flori know that was not at home phone but was in room with pt for contact later today.
--- NOTE | 2020-08-18 14:18 | NUR ---
Patient has given this director community health nursing Jamie Sun to permission to provide care at this time
--- NOTE | 2020-08-18 15:32 | NUR ---
PT WAS YELLING OUT REPORTED FEELING UNCOMFORTABLE HAVING PAIN, MEDICATED THE PT FOR PAIN AND REPOSITIONED, PTS FAMILY IS AT THE BEDSIDE SHORTLY AFTER
--- NOTE | 2020-08-18 15:34 | NUR ---
PT APPEARS COMFORTABLE FAMILY IS AT THE BEDSIDE
--- NOTE | 2020-08-18 15:34 | NUR ---
PT REPOSITIONED EARLIER FAMILY IS AT THE BEDSIDE, PT WAS GIVEN A DRINK OF WATER PER HIS REQUEST AND TOLERATED IT WELL EARLIER
--- NOTE | 2020-08-18 16:27 | NUR ---
08/18/20 Met with son Anjel, s/w Adrienne by phone, [facility] available Tuesday. I faxed signed order, h&p, labs, nurse notes, palliative notes, i&o, Atten Jovita, by Jovita requests. Called [facility] 4:25, call Adrienne at home, no contact yet. can accept equipment in the am, Bed and overbend table. discussed sheets from [facility], Asked [facility] to call me with discharge time for me to schedule transport. Baldev, private pay discussed with Adrienne.
--- NOTE | 2020-08-18 18:12 | NUR ---
PT IS ALERT WHEN AWAKE ABLE TO ANSWER SOME QUESTIONS, THE PT HAS BEEN SLEEPING OFF AND ON T/O THE DAY, THE PT WAS MEDICATED FOR PAIN X1 TODAY SO FAR, THE PTS FAMILY WAS IN TO SEE THE PT T/O THE DAY, CALL LIGHT IN REACH, WILL CONTINUE TO MONITOR AND ASSESS FOR CHANGES
--- NOTE | 2020-08-18 23:13 | NUR ---
08/18/200 RN SPOKE WITH DAUGHTER, REBECA, AND [id number]. REBECA WAS CONCERNED THAT HER FATHER WASN'T GETTING OFFERED ORAL FLUIDS ENOUGH. ALSO, SHE WONDERED WHY HE WAS NOT GETTING "A SALINE BAG" LIKE WHEN HE WAS FIRST ADMITTED. RN INFORMED THEM THAT HE IS ON "COMFORT CARE" AND [place] THAT DOES NOT INCLUDE IV SALINE BAGS. RN ENCOURAGED HER TO SPEAK WITH MD IN AM ABOUT THESE ISSUES. ALSO RN INFORMED THEM THAT WE WOULD MAKE SURE HER FATHER IS OFFERED SIPS OF FLUIDS/WATER AND ASKED IF HE IS IN PAIN WITH ROUNDS AND TURNING. THEY THANKED STAFF AND RE-ENTERED PT'S ROOM.
--- NOTE | 2020-08-19 03:09 | NUR ---
08/19/20 PT SLEEPING WELL. NO DISTRESS NOTED. REPOSITIONED BY CNAS. SIP OF WATER OFFERED AND GIVEN.
--- NOTE | 2020-08-19 05:07 | NUR ---
08/19/20 0400 PT SLEEPING WITHOUT DISCOMFORT OR DISTRESS. REPOSITIONED AND OFFERED ORAL INTAKE BUT ONLY TAKES A SIP OR TWO OF WATER AND THEN SHAKES HEAD "NO". IV FLUIDS AT 75ML/HOUR PER FAMILY REQUEST. RN INFORMED ON-CALL MD ABOUT FAMILY CONCERNS FOR HYDRATION.
--- NOTE | 2020-08-19 07:22 | NUR ---
pt awake this am denies pain, repositioned for comfort, appears comfortable at this time
--- NOTE | 2020-08-19 09:38 | NUR ---
PT REPOSITIONED, PT IS MORE AWAKE THIS AM PT WAS ABLE TO TAKE A DRINK OF WATER, DECLINES PAIN MED AT THIS TIME
--- NOTE | 2020-08-19 10:30 | NUR ---
PAL CARE COMFORT CARE VISIT AND CASE CONFERENCE - Pt more awake this am. He is reaching with arms at things in the air. He appears sl anxious but not agitated. Case conferenced with RN and EFM/CM. POLST completed based on current goals, orders and plans of care discussed with pt's yesterday and previously, per Flori's request, for transport planned to home today and [facility] arranged by Flori also. Adrienne was not in the room this am when I visited. I had a good therapeutic conversation with her yesterday afternoon. She was able to verbalize her grief that Chilango would not live longer. His mom lived to be 101 and fairly recently a couple years ago. Time spent listening and reminiscing with her. She and Chilango are known to me in the community.
--- NOTE | 2020-08-19 10:42 | NUR ---
SUMMARY: Admit: 08/15/20 08/19/20 Discharge home today on [facility], 12:00 transport arranged with halle Campos to be completed, [facility] transport form to be completed. Dr and nurse notified of 12:00 transport scheduled. Adrienne is at home, waiting for his arrival by Baldev. [facility] has delivered equipment. Hospice Nurse will be at home this after noon. Call Adrienne at home for ronak. cp
--- NOTE | 2020-08-19 13:06 | NUR ---
PT DISCHARGED THE PT WAS DC'D TO HOME ON HOSPICE, TRANSFERED VIA WHEELCHAIR ACCOMPANIED BY [facility], PT WAS MEDICATED WITH MORPHINE FOR PAIN DURING TRANSFER, PT WAS AWAKE AND ANSWERING QUESTIONS AT THE TIME OF TRANSFER
--- NOTE | 2020-08-19 13:10 | NUR ---
PT AWAKE TALKED TO HIS ON THE PHONE, PT REPOSITIONED, CALL LIGHT IN REACH
== END 2020-08-19 12:12 | disposition hospice, home (50) | DRG 640 ==
LOC: ER 17:00 → MEDS 23:51
PROVIDERS: Emergency Medicine; ADMIT Internal Medicine
PROC: 30233N1 Transfusion of Nonautologous Red Blood Cells into Peripheral Vein, Percutaneous Approach (ICD-10-PCS; principal; 2020-08-15)
DX: E86.0 Dehydration (principal); G93.41 Metabolic encephalopathy; C15.9 Malignant neoplasm of esophagus, unspecified; C16.0 Malignant neoplasm of cardia; C78.1 Secondary malignant neoplasm of mediastinum; C78.7 Secondary malignant neoplasm of liver and intrahepatic bile duct; N39.0 Urinary tract infection, site not specified; Z68.1 Body mass index [BMI] 19.9 or less, adult; R64 Cachexia; Z51.5 Encounter for palliative care; I95.9 Hypotension, unspecified; Z20.822 Contact with and (suspected) exposure to COVID-19; E11.9 Type 2 diabetes mellitus without complications; E78.5 Hyperlipidemia, unspecified; E83.52 Hypercalcemia; E87.5 Hyperkalemia; E88.09 Other disorders of plasma-protein metabolism, not elsewhere classified; I12.9 Hypertensive chronic kidney disease with stage 1 through stage 4 chronic kidney disease, or unspecified chronic kidney disease; E11.22 Type 2 diabetes mellitus with diabetic chronic kidney disease; N18.9 Chronic kidney disease, unspecified; Z85.46 Personal history of malignant neoplasm of prostate; I48.91 Unspecified atrial fibrillation; E86.1 Hypovolemia; Z66 Do not resuscitate; D63.0 Anemia in neoplastic disease
CPT/HCPCS: 36415; 36430; 51702; 71045; 80053; 81001; 81003; 85014; 85018; 85025; 86850; 86900; 86901; 86923; 87077; 87086; 87186; 93005; 93010; 96360-59; 96361-59; 99285-25; A9270; J3010; J7030; J7040; P9016